=== PATIENT | female | born 1960 | race Caucasian/White ===

== ENCOUNTER → 2020-07-15 13:50 | Outpatient (BNVA) | payer OTHER, SELFPAY | PROVIDERS: PCP Internal Medicine; Referring Provider Internal Medicine; Visit Provider Hospitalist | DX: G47.33 Obstructive sleep apnea (adult) (pediatric) (principal); J45.909 Unspecified asthma, uncomplicated; R13.10 Dysphagia, unspecified; R05 Cough; Z91.013 Allergy to seafood; Z91.018 Allergy to other foods; Z88.8 Allergy status to other drugs, medicaments and biological substances; Z91.09 Other allergy status, other than to drugs and biological substances; Z99.89 Dependence on other enabling machines and devices; Z79.52 Long term (current) use of systemic steroids; Z79.899 Other long term (current) drug therapy | CPT/HCPCS: 90686; 99212 ==

== ENCOUNTER → 2021-01-16 14:00 | Outpatient (BNVA) | payer OTHER, SELFPAY | PROVIDERS: PCP Internal Medicine; Visit Provider Hospitalist | DX: R05 Cough (principal); G47.33 Obstructive sleep apnea (adult) (pediatric); R13.10 Dysphagia, unspecified; J44.9 Chronic obstructive pulmonary disease, unspecified; Z99.89 Dependence on other enabling machines and devices | CPT/HCPCS: 99212 ==

== ENCOUNTER 2021-04-01 08:27 | Outpatient (REF) | payer OTHER, SELFPAY ==
--- NOTE | ~2021-04-01 | XR_ITS ---
EXAMINATION: XR CHEST CLINICAL INFORMATION: Unspecified asthma COMPARISON: Previous chest x-ray most recent November 2019 and chest CTA May 2020 TECHNIQUE: 2 views of the chest were obtained. FINDINGS: The cardiac silhouette is enlarged and appears increased in size compared to previous exams. There are increased central hilar markings. Mediastinal contours are unremarkable. There are new increased coarse lung markings. There may be some cystic changes seen in the lungs as well, for example in left upper lobe between the posterior seventh and eighth ribs. This is greatest in the upper lobes. Interstitial lung disease or atypical pneumonia should be considered. Possible pulmonary edema superimposed on severe emphysema should also be considered however no evidence of emphysema is seen on chest CTA May 2020. There is question of a denser left upper lobe nodule measuring 1.2 cm. This overlies the third anterior and left posterior sixth ribs and may be artifactual due to overlapping bone. There is no pleural effusion or pneumothorax. There are degenerative changes of the spine. XR/XR chest 2V IMPRESSION: Enlarged cardiac silhouette. New diffuse coarse lung markings, greatest in the upper lobes. Interstitial lung disease or atypical pneumonia should be considered. Possible pulmonary edema should also be considered.
[2021-04-01 09:44] LABS: MANUAL DIFF FLAG NO
[2021-04-01 09:53] LABS: Basophils Percent Auto 0.3 % (0-2); Eosinophils Percent Auto 0.2 % (0-4); Hematocrit 35.5 % (37-47); Hemoglobin 10.3 g/dl (12.0-16.0); Imm Gran Abs Auto 0.11 X10*3/uL (0.00-0.03); Imm Gran Pct Auto 1.8 % (0.0-0.4); Lymphocytes Absolute Auto 1.1 X10*3/uL (1.2-4.9); Lymphocytes Percent Auto 18.7 % (20-40); Mean Corpuscular Hemoglobin 28.2 pg (27.0-33.0); Mean Corpuscular Volume 97.3 fL (80-98); Mean Platelet Volume 10.6 fL (9.4-12.3); Monocytes Absolute Auto 0.2 X10*3/uL (0.1-1.2); Neutrophils Absolute Auto 4.6 X10*3/uL (2.0-8.3); Platelet Count 233 X10*3/uL (160-400); Red Blood Count 3.65 X10*6/uL (4.20-5.50); Red Cell Distribution Width 15.7 % (11.0-16.0)
[2021-04-01 10:08] LABS: D Dimer < 200 NG/ML
[2021-04-01 10:24] LABS: Anion Gap 16 (12-20); Blood Urea Nitrogen 11 mg/dL (9-16); Calcium 8.9 mg/dL (8.4-10.2); Carbon Dioxide 29 mmol/L (22-29); Chloride 100 mmol/L (96-108); Estimated Glomerular Filt Rate > 60; Glucose Random 148 mg/dL (60-115); Potassium 4.5 mmol/L (3.3-5.1); Sodium 140 mmol/L (135-145)
[2021-04-01 10:38] LABS: Erythrocyte Sedimentation Rate 38 MM/HR (0-20)
[2021-04-01 10:41] LABS: SARS COV2 IgG Positive (Negative)
[2021-04-03 16:40] LABS: Immunoglobulin G Subclass 1 494 mg/dL (382-929); Immunoglobulin G Subclass 2 141 mg/dL (241-700); Immunoglobulin G Subclass 3 14 mg/dL (22-178); Immunoglobulin G Subclass 4 37.5 mg/dL (4-86); Immunoglobulin G Total 744 mg/dL (600-1640)
== END 2021-04-01 08:28 | disposition home or self-care (01) ==
LOC: HO.LAB 08:27
PROVIDERS: Visit Provider Hospitalist
DX: G47.33 Obstructive sleep apnea (adult) (pediatric) (principal); J44.9 Chronic obstructive pulmonary disease, unspecified; B94.8 Sequelae of other specified infectious and parasitic diseases; J84.10 Pulmonary fibrosis, unspecified; Z99.89 Dependence on other enabling machines and devices
CPT/HCPCS: 36415; 71046; 80048; 82784; 85025; 85379; 85652; 86769; 99212

== ENCOUNTER → 2021-05-07 10:32 | Outpatient (BNVA) | payer OTHER, SELFPAY | PROVIDERS: Visit Provider Hospitalist | DX: K21.9 Gastro-esophageal reflux disease without esophagitis (principal); J45.909 Unspecified asthma, uncomplicated; G47.33 Obstructive sleep apnea (adult) (pediatric); J44.9 Chronic obstructive pulmonary disease, unspecified; J84.10 Pulmonary fibrosis, unspecified; B94.8 Sequelae of other specified infectious and parasitic diseases; Z99.89 Dependence on other enabling machines and devices; Z79.899 Other long term (current) drug therapy | CPT/HCPCS: 99212 ==

== ENCOUNTER → 2021-06-16 19:46 | Outpatient (REF) | payer OTHER, SELFPAY | LOC: HO.SL 19:46 | PROVIDERS: Visit Provider Hospitalist | DX: G47.33 Obstructive sleep apnea (adult) (pediatric) (principal) | CPT/HCPCS: 95811 ==

== ENCOUNTER → 2021-07-03 10:50 | Outpatient (BNVA) | payer OTHER, SELFPAY | PROVIDERS: PCP Internal Medicine; Visit Provider Hospitalist | DX: G47.33 Obstructive sleep apnea (adult) (pediatric) (principal); J44.9 Chronic obstructive pulmonary disease, unspecified; J84.10 Pulmonary fibrosis, unspecified; B94.8 Sequelae of other specified infectious and parasitic diseases; R60.0 Localized edema; Z88.6 Allergy status to analgesic agent; Z88.1 Allergy status to other antibiotic agents; Z88.8 Allergy status to other drugs, medicaments and biological substances; Z91.018 Allergy to other foods; Z91.013 Allergy to seafood; Z91.09 Other allergy status, other than to drugs and biological substances; Z79.52 Long term (current) use of systemic steroids | CPT/HCPCS: 99212 ==

== ENCOUNTER 2021-08-17 13:51 | Outpatient (REF) | payer OTHER, SELFPAY ==
[2021-08-17 15:16] LABS: MANUAL DIFF FLAG NO
[2021-08-17 15:27] LABS: Basophils Percent Auto 0.3 % (0-2); Eosinophils Percent Auto 0.2 % (0-4); Hematocrit 32.5 % (37.0-47.0); Hemoglobin 9.4 g/dl (12.0-16.0); Imm Gran Abs Auto 0.05 X10*3/uL (0.00-0.03); Imm Gran Pct Auto 0.9 % (0.0-0.4); Lymphocytes Absolute Auto 1.1 X10*3/uL (1.2-4.9); Lymphocytes Percent Auto 18.8 % (20-40); Mean Corpuscular HGB Conc 28.9 g/dl (31.0-35.0); Mean Corpuscular Volume 89.8 fL (80.0-98.0); Mean Platelet Volume 10.2 fL (9.4-12.3); Monocytes Absolute Auto 0.3 X10*3/uL (0.1-1.2); Monocytes Percent Auto 4.9 % (2-11); NRBC Pct Auto 0.3 /100WBC (0.0-0.2); Neutrophils Absolute Auto 4.3 x10*3/uL (2.0-8.3); Neutrophils Percent Auto 74.9 % (45-73); Platelet Count 245 X10*3/uL (160-400); Red Blood Count 3.62 X10*6/uL (4.20-5.50); Red Cell Distribution Width 15.1 % (11.0-16.0); White Blood Count 5.8 X10*3/uL (4.8-10.8)
[2021-08-17 15:41] LABS: Anion Gap 14 (12-20); Blood Urea Nitrogen 16 mg/dL (9-16); Calcium 9.5 mg/dL (8.4-10.2); Carbon Dioxide 35 mmol/L (22-29); Chloride 96 mmol/L (96-108); Estimated Glomerular Filt Rate 53; Glucose Random 138 mg/dL (60-115); Potassium 4.3 mmol/L (3.3-5.1); Sodium 141 mmol/L (135-145)
[2021-08-17 16:44] LABS: Erythrocyte Sedimentation Rate 59 MM/HR (0-20)
--- NOTE | 2021-08-17 17:45 | PFT_ITS ---
FLOWS: FEV1 64% of predicted at 1.54 L. FVC 57% of predicted at 1.78 L. FEV1 to FVC ratio of 0.87. The patient stated that she was to try to perform bronchodilator test. LUNG VOLUMES: Total lung capacity 55% of predicted at 2.65 L. Residual volume 42% of predicted at 0.80 L. Slow vital capacity 63% of predicted at 1.85 L. Expiratory reserve volume 9% of predicted at 0.07 L. Diffusion capacity is moderately decreased, diffusion capacity corrects to normal after adjustment for alveolar ventilation. In comparison to pulmonary function test from November of 2019, FEV1 has decreased by 0.71 L; FVC has decreased by 0.87 L; total lung capacity has decreased by 1.18 L; residual volume has decreased by 0.25 L; slow vital capacity has decreased by 1.03 L; expiratory reserve volume is without significant changes; diffusion capacity has decreased by 11.86 mL/minute per mmHg. IMPRESSION: Moderate restrictive ventilatory defect. The patient did not want to proceed response bronchodilator measurements. Decreased expiratory reserve volume suggests extrathoracic restriction likely secondary to abdominal obesity. Anthony Cuellar MD [facility] / [id number]
[2021-08-19 21:37] LABS: Immunoglobulin E 10 kU/L (<OR=114)
[2021-08-20 21:47] LABS: Immunoglobulin G Subclass 1 652 mg/dL (382-929); Immunoglobulin G Subclass 2 176 mg/dL (241-700); Immunoglobulin G Subclass 3 12 mg/dL (22-178); Immunoglobulin G Subclass 4 57.6 mg/dL (4-86); Immunoglobulin G Total 1066 mg/dL (600-1640)
== END 2021-08-17 13:52 | disposition home or self-care (01) ==
LOC: HO.RESP 13:51
PROVIDERS: Visit Provider Hospitalist
DX: J84.10 Pulmonary fibrosis, unspecified (principal); J44.9 Chronic obstructive pulmonary disease, unspecified; B94.8 Sequelae of other specified infectious and parasitic diseases; R60.0 Localized edema
CPT/HCPCS: 36415; 80048; 82784; 82785; 85025; 85652; 94010; 94727; 94729

== ENCOUNTER → 2021-08-18 13:46 | Outpatient (BNVA) | payer OTHER, SELFPAY | PROVIDERS: PCP Internal Medicine; Visit Provider Hospitalist | DX: G47.33 Obstructive sleep apnea (adult) (pediatric) (principal); J44.9 Chronic obstructive pulmonary disease, unspecified; J84.10 Pulmonary fibrosis, unspecified; R60.0 Localized edema; B94.8 Sequelae of other specified infectious and parasitic diseases; Z99.89 Dependence on other enabling machines and devices | CPT/HCPCS: 90471; 90686; 99212 ==

== ENCOUNTER 2021-11-10 16:30 | Outpatient (RCR) | payer OTHER, SELFPAY ==
--- NOTE | 2021-11-11 08:28 | HO.HEMONCSCH ---
CALLED PT DUE TO HER N/S FOR 11/10/21 YESTERDAY . I RESCHEDULED W/ PATIENT ON THE PHONE .
--- NOTE | 2021-12-04 08:10 | HO.HEMONCSCH ---
Left message letting patient know she again no showed for 12/03/21 f/u apt. N/S letter mailed.
== END 2022-03-14 | disposition home or self-care (01) ==
LOC: HO.ONC 16:30
PROVIDERS: Visit Provider Internal Medicine Medical Oncology
DX: D80.3 Selective deficiency of immunoglobulin G [IgG] subclasses (principal)

== ENCOUNTER → 2022-01-28 15:33 | Outpatient (BNVA) | payer OTHER, SELFPAY | PROVIDERS: PCP Internal Medicine; Visit Provider Hospitalist | DX: J44.9 Chronic obstructive pulmonary disease, unspecified (principal) ==

== ENCOUNTER 2022-02-01 11:06 | Outpatient (REF) | payer OTHER, SELFPAY ==
--- NOTE | ~2022-02-01 | XR_ITS ---
EXAMINATION: XR CHEST CLINICAL INFORMATION: Pleurodynia. Chest pain COMPARISON: Prior chest radiograph 04/01/2021 TECHNIQUE: 2 views of the chest were obtained. FINDINGS: Extensive interstitial infiltrates are noted. This is uncertain as this appears unchanged from 04/01/2021. In this case, high-resolution chest CT may be of use. No pleural effusions. Heart size borderline with slight distention of the pulmonary vessels. XR/XR chest 2V IMPRESSION: Lateral infiltrates noted likely chronic. High-resolution chest CT may be helpful.
== END 2022-02-01 11:07 | disposition home or self-care (01) ==
LOC: HO.XRAY 11:06
PROVIDERS: PCP Internal Medicine; Visit Provider Hospitalist
DX: R07.81 Pleurodynia (principal); G47.33 Obstructive sleep apnea (adult) (pediatric); J44.9 Chronic obstructive pulmonary disease, unspecified; J84.10 Pulmonary fibrosis, unspecified; R60.0 Localized edema; B94.8 Sequelae of other specified infectious and parasitic diseases
CPT/HCPCS: 71046; 99212